=== PATIENT | female | born 1990 | race American Indian/Alaskan Native ===

== ENCOUNTER 2018-03-23 09:08 | Outpatient (CLI) | payer OTHER ==
[2018-03-23 09:25] VITALS: BP 116/69
[2018-03-23] MEDS ORDERED: LACTATED RINGERS 1,000 ML ONE (09:35)
[2018-03-23] MEDS ORDERED: LACTATED RINGERS 500 ML IV ONE (09:41)
[2018-03-23 10:32] LABS: Bacteria,Urine 1+ /HPF (Negative); Bilirubin,Urine NEG (Negative); Blood,Urine NEG (Negative); Color,Urine Yellow (Yellow); Mucus,Urine FEW /HPF; Protein,Urine <15 mg/dL mg/dL (Negative); Urobilinogen,Urine < 2.0 mg/dL (<2.0)
[2018-03-23] MEDS ORDERED: TYLENOL PO ONE (11:38)
== END 2018-03-23 13:10 | disposition home or self-care (01) ==
LOC: TRG 09:08
PROVIDERS: ATTEND Obstetrics & Gynecology
DX: O47.02 False labor before 37 completed weeks of gestation, second trimester (principal); Z3A.26 26 weeks gestation of pregnancy
CPT/HCPCS: 81001; J7120

== ENCOUNTER 2018-04-05 | Outpatient (CLI) | payer OTHER ==
[2018-04-05 00:25] VITALS: BP 106/56
[2018-04-05] MEDS ORDERED: LACTATED RINGERS 500 ML IV ONE (00:45)
[2018-04-05] MEDS ORDERED: LACTATED RINGERS 1,000 ML IV ONE (00:46)
[2018-04-05 01:20] LABS: Bilirubin,Urine NEG (Negative); Blood,Urine NEG (Negative); Calcium Oxalate Crystals,Urine 1+; Color,Urine Yellow (Yellow); Mucus,Urine FEW /HPF; Protein,Urine <15 mg/dL mg/dL (Negative); Urobilinogen,Urine < 2.0 mg/dL (<2.0)
[2018-04-05] MEDS ORDERED: TYLENOL #3 PO ONE (02:06)
== END 2018-04-05 03:26 | disposition home or self-care (01) ==
LOC: TRG
PROVIDERS: ATTEND Obstetrics & Gynecology
DX: O62.8 Other abnormalities of forces of labor (principal); Z3A.27 27 weeks gestation of pregnancy
CPT/HCPCS: 81001; 96360; 96361; J7120

== ENCOUNTER 2018-04-05 04:23 | Observation (INO) | payer OTHER ==
[2018-04-05] MEDS ORDERED: SUBLIMAZE IV ONE (05:05)
[2018-04-05] MEDS: LACTATED RINGERS 1,000 ML IV SCH ×2 (05:34→07:38)
[2018-04-05 05:57] LABS: Basophils % (Auto) 0.2 % (0.0-1.8); Eosinophils # (Auto) 0.2 K/mm3 (0.0-0.4); Eosinophils % (Auto) 2.5 % (0.0-4.3); Hemoglobin 10.7 gm/dl (10.1-14.3); Lymphocytes # (Auto) 2.5 K/mm3 (1.2-5.4); Lymphocytes % (Auto) 27.7 % (13.4-35.0); Mean Corpuscular HGB Conc 34 % (30-34); Mean Corpuscular Hemoglobin 29 pg (28-32); Mean Corpuscular Volume 83 fl (79-97); Monocytes % (Auto) 10.9 % (0.0-7.3); Platelet Count 152 K/mm3 (140-440); Red Blood Count 3.72 M/mm3 (3.65-5.03); Red Cell Distribution Width 14.7 % (13.2-15.2)
[2018-04-05 06:20] LABS: Alanine Aminotransferase 13 units/L (7-56); Albumin 3.2 g/dL (3.9-5); BUN/Creatinine Ratio 23; Blood Urea Nitrogen 9 mg/dL (7-17); Calcium 8.8 mg/dL (8.4-10.2); Hemolysis Index 10
[2018-04-05 07:23] VITALS: BP 100/56
--- NOTE | 2018-04-05 07:55 | Ultrasound Report ---
ULTRASOUND RENAL BILATERAL HISTORY: Back pain. TECHNIQUE: transabdominal ultrasound with color Doppler interrogation. COMPARISON: none. FINDINGS: The right kidney measures 10.4cm. Right renal cortex: 1.3cm. The left kidney measures 11.8cm. Left renal cortex: 1.8cm. The kidneys are normal size, contour and position. There is increased renal cortical echotexture bilaterally consistent with nonspecific renal parenchymal disease. Corticomedullary differentiation is preserved. No evidence for cystic disease, mass, nephrolithiasis, hydronephrosis or perinephric fluid. The views of the bladder and the region of the ureters appear normal. An intrauterine in cephalic position is partially imaged. IMPRESSION: Slightly echogenic kidneys consistent with nonspecific renal parenchymal disease. No obstructive uropathy.
--- NOTE | 2018-04-05 09:02 | History and Physical Report ---
History of Present Illness Date of examination: 04/05/18 Date of admission: 04/05/18 Chief complaint: back pain History of present illness: This is a 28 yo came in for back pain and abdominal pain. She describes as cramping abdominal pain. no n,v,f, chills. The pain is described as sharp and stabbing. She denies any bleedingno leaking and no contractions. 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 denies: smoking, alcohol abuse, prescription drug abuse - Obstetrical History Expected Date of Delivery: 06/23/18 Actual Gestation: 28 Week(s) 5 Day(s) : 1 Para: 0 Hx # Term Pregnancies: 0 Number of Pregnancies: 0 Spontaneous Abortions: 0 Induced : 0 Number of Living Children: 0 Medications and Allergies Allergies Allergy/AdvReac Type Severity Reaction Status Date / Time No Known Allergies Allergy Unverified 03/23/18 09:39 Active Meds: Active Medications Lactated Ringer's (Lactated Ringers) 1,000 mls @ 125 mls/hr IV DIRECT CHANDLER Last Admin: 04/05/18 07:38 Dose: 125 mls/hr Review of Systems Gastrointestinal: abdominal pain - Vital Signs Vital signs: Vital Signs Pulse Pulse Ox 72 92 04/05/18 05:27 04/05/18 05:27 Temp Pulse Resp BP Pulse Ox 97.9 F 74 20 100/56 100 04/05/18 07:20 04/05/18 08:19 04/05/18 07:20 04/05/18 07:23 04/05/18 08:19 - Physical Exam Breasts: Positive: normal Cardiovascular: Regular rate, Normal S1 Lungs: Positive: Clear to auscultation, Normal air movement Abdomen: Positive: normal appearance, soft, normal bowel sounds. Negative: distention, tenderness, guarding Genitourinary (Female): Positive: normal external genitalia, normal perenium Vulva: both: normal Uterus: Positive: normal size Extremities: Positive: normal - Obstetrical FHR: category 1 Results Result Diagrams: 04/05/18 05:26 04/05/18 05:26 Abnormal lab results 04/05/18 04/05/18 Range/Units 05:26 05:26 Guthrie % (Auto) 10.9 H (0.0-7.3) % Guthrie # 1.0 H (0.0-0.8) K/mm3 Creatinine 0.4 L (0.7-1.2) mg/dL Total Protein 5.9 L (6.3-8.2) g/dL Albumin 3.2 L (3.9-5) g/dL All other labs normal. Ultrasound: report reviewed Assessment and Plan A/P IUP 27 weeks back pain resolved with fluids and narcotics labs reported as neg renal US neg FFn neg EFM cat 1 no contractions patient reports feeling better. patient to be dicharged and f/u this week in the clinic
[2018-04-05 10:15] LABS: Bacteria,Urine 1+ /HPF (Negative); Bilirubin,Urine NEG (Negative); Blood,Urine NEG (Negative); Color,Urine Yellow (Yellow); Mucus,Urine FEW /HPF; Protein,Urine <15 mg/dL mg/dL (Negative); Urobilinogen,Urine < 2.0 mg/dL (<2.0)
--- NOTE | 2018-04-05 11:54 | Event Note ---
Date: 04/05/18 UA reviewed showing signs of UTI and macrobid Rx written
== END 2018-04-05 12:13 | disposition home or self-care (01) ==
LOC: TRG 04:23 → LD 05:07 → TRG 10:15
PROVIDERS: ADMIT Obstetrics & Gynecology; ATTEND Obstetrics & Gynecology
DX: O99.89 Other specified diseases and conditions complicating pregnancy, childbirth and the puerperium (principal); M54.9 Dorsalgia, unspecified; Z3A.27 27 weeks gestation of pregnancy
CPT/HCPCS: 36415; 76770; 80053; 81001; 82731; 85025; 87086; 96374; G0378; J3010; J7120